=== PATIENT | female | born 1970 | race African-American/Black ===

== ENCOUNTER 2022-11-09 09:33 | Emergency (ER) | payer OTHER, MEDICAID ==
[~2022-11-09] VITALS: Ht 167.6 cm; Wt 65.0 kg
[2022-11-09 09:35] VITALS: O2SAT 99
[2022-11-09] MEDS ORDERED: FAMO-135 PO (10:45)
[2022-11-09] MEDS ORDERED: P50 PO (10:45)
[2022-11-09] MEDS ORDERED: DIPH25CA83 PO (10:45)
[2022-11-09 11:17] VITALS: BP 142/78; PULSE 111; RESP 18; TEMP 98.2
== END 2022-11-09 20:11 | disposition home or self-care (01) ==
LOC: ER 11:16
DX: T78.40XA Allergy, unspecified, initial encounter (principal); Z86.73 Personal history of transient ischemic attack (TIA), and cerebral infarction without residual deficits; X58.XXXA Exposure to other specified factors, initial encounter
CPT/HCPCS: 99281; 99283